=== PATIENT | female | born 1975 | race Caucasian/White ===

== ENCOUNTER 2023-06-04 09:48 | Outpatient (OUT) | payer OTHER, SELFPAY ==
--- NOTE | 2023-06-04 09:59 | US_ITS ---
[address] [address] Patient Name: GINI LOCKHART MRN: [id number] date: 1975 Sex: F Assigned Patient Location: Current Patient Location: Accession/Order Number: [id number] Exam Date: 06/04/2023 10:07 Report Date: 06/05/2023 15:43 At the request of: OCTAVIA DELANEY Procedure: US abdomen complete EXAM: US abdomen complete EXAM DATE: 06/04/2023 8:07 AM MDT COMPARISON: None available. INDICATION: ABDOMINAL DISTENSION R14.0 FINDINGS: Hepatic parenchyma echogenicity is mildly increased. Hepatic length measures 17.2 cm. No focal hepatic lesion observed. The gallbladder contains a shadowing gallstone measuring 3.5 x 2.2 x 2.3 cm. No gallbladder wall thickening or pericholecystic fluid observed. Gallbladder wall thickness measures 1.7 mm. Sonographic Harrington's sign is absent. No intrahepatic or extrahepatic bile duct dilation observed. Common bile duct measures 4.3 mm in diameter. Splenic parenchyma is homogeneous. No hydronephrosis or obvious solid renal mass. No shadowing renal calculus. Pancreas is partially obscured by bowel gas; visualized pancreatic parenchyma is homogeneous. Portal vein is patent with normal hepatopedal flow. No free fluid is seen. Dimensions- Common bile duct: 4.3 mm. Spleen: 11.4 cm in length. Right kidney: 11.3 x 6.3 x 4.6 cm. Left kidney: 13 x 4.9 x 5.5 cm. US/US abdomen complete IMPRESSION: 1. Cholelithiasis. Shadowing gallstone measures up to 3.5 cm. No secondary sonographic features of acute cholecystitis. Sonographic Harrington's sign is absent. 2. Mild fatty infiltration of the liver. 3. Subvisualized pancreas. 4. No hydronephrosis. Electronically authenticated by: DIANE JADE Date: 06/05/2023 15:43
== END 2023-06-04 09:49 | disposition home or self-care (01) ==
LOC: US 09:51
PROVIDERS: PCP Family Medicine; Visit Provider Nurse Practitioner
DX: R14.0 Abdominal distension (gaseous) (principal); R11.2 Nausea with vomiting, unspecified; R19.7 Diarrhea, unspecified; R10.9 Unspecified abdominal pain; K76.0 Fatty (change of) liver, not elsewhere classified; K80.20 Calculus of gallbladder without cholecystitis without obstruction
CPT/HCPCS: 76700